=== PATIENT | female | born 1965 | race Caucasian/White ===

== ENCOUNTER 2022-02-12 15:17 | Outpatient (CLI) | payer OTHER, SELFPAY ==
[2022-02-12 21:52] LABS: C Reactive Protein* 0.5 mg/dL (0.5-1.0)
[2022-02-14 18:12] LABS: Rheumatoid Factor < 10 IU/mL (0-14)
[2022-02-15 06:17] LABS: Anti-Nuclear Ab(ANA)IgG ELISA None Detected (None Detected)
[2022-03-10 09:32] LABS: Myeloperoxidase (MPO) Ab, IgG 0; Serine Proteinase 3 Ab IgG 4
[2022-03-10 09:33] LABS: ANCA IFA Pattern None Detected; ANCA IFA Titer <1:20
== END 2022-02-12 15:18 | disposition home or self-care (01) ==
PROVIDERS: PCP Family Medicine; Visit Provider Otolaryngology
DX: R13.10 Dysphagia, unspecified (principal)
CPT/HCPCS: 83516; 84443; 86039; 86140; 86255; 86431; 86618

== ENCOUNTER 2022-02-13 13:36 | Outpatient (CLI) | payer OTHER, SELFPAY ==
--- NOTE | 2022-02-13 14:00 | CRLHL7_ITS ---
For Patients: As a result of the Century Cures Act, medical imaging exams and procedure reports are released immediately into your electronic medical record. You may view this report before your referring provider. If you have questions, please contact your health care provider. Indication: Wheezing, shortness of breath x1 year Technique: Volumetric multidetector CT images of the cervical soft tissues were obtained after the administration of low osmolar intravenous contrast. 69 cc Isovue 370 low osmolar intravenous contrast Comparison: None available. Findings: The partially visualized brain parenchyma is normal in attenuation without evidence of abnormal enhancement. The orbits and their contents are within normal limits. The paranasal sinuses are clear. The mastoid air cells are clear. The nasopharynx is unremarkable. The fossae of Rosenmuller are clear. The oropharynx is unremarkable. The hypopharynx is clear. There is demonstration of subglottic narrowing of the trachea seen best on series 3, image 50 and series 6, image 27. This is a somewhat concentric appearance with otherwise normal airway and tracheal caliber seen within the upper chest and proximal bronchi. The vocal folds are nonthickened with symmetrical appearance. The thyroid gland is normal in attenuation. There is no evidence of pathologically enlarged cervical lymph node. The jugular veins are patent. The carotid arteries demonstrate no significant atherosclerotic narrowing. The lung apices are clear. The cervical vertebral body heights are grossly maintained with minimal anterolisthesis of C3 on C4. Impression: Demonstration of focal subglottic stenosis and circumferential soft tissue thickening in the proximal trachea seen best on series 3, image 50 and series 6, image 27 which can be the sequela of prior intubation and development of concentric scar tissue. Correlate with clinical history. Recommend direct visualization for improved characterization. Otherwise, no evidence of inflammatory change or pathologic adenopathy. Please note that all CT scans at this facility use dose modulation, iterative reconstruction, and/or weight-based dosing when appropriate to reduce radiation dose to as low as reasonably achievable. Dictated by Devendra Francisco MD @ 02/13/2022 3:34:43 PM (Electronically Signed)
== END 2022-02-13 13:37 | disposition home or self-care (01) ==
PROVIDERS: PCP Family Medicine; Visit Provider Otolaryngology
DX: R06.02 Shortness of breath (principal); R06.2 Wheezing
CPT/HCPCS: 70491; Q9967